=== PATIENT | female | born 1955 | race Caucasian/White ===

== ENCOUNTER 2024-06-11 23:39 | Emergency (ER) | payer OTHER ==
[~2024-06-11] VITALS: Ht 167.6 cm; Wt 89.4 kg
--- NOTE | 2024-06-12 00:14 | NUR ---
PATIENT REPORTS SHE TRIPPED WITH UNEVEN CEMENT AND FELL FORWARD. BROKE FALL WITH R ARM, VERBALIZES R HAND, SHOULDER, HEAD AND NECK PAIN. REPORTS MAY HAVE PASSED OUT FOR A FEW SECONDS
--- NOTE | 2024-06-12 00:16 | ERN ---
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 She does have pain in her right shoulder, right hand. States that she was able to walk after the event. Allergies: Coded Allergies: No Known Allergies (Unverified Allergy, Unknown, 06/11/24) Past Medical History Past Medical History: Other Additional Past Medical Hx: BREAST CA, BONE CA Surgical History: Hysterectomy Review of System Dictation NEGATIVE EXCEPT PER HPI Constitutional: Negative for fever,chills, and weight loss Eyes: Negative for injury, pain,redness, and discharge ENT: Negative for injury,pain or swelling Cardiovascular: denies chest pain, palpitations, and edema Respiratory: Negative for shortness of breath, cough, and wheezing, Abdomen/GI: Negative for abdominal pain, nausea, vomiting, diarrhea, and constipation Back: Negative for injury and pain : Negative for injury, bleeding and discharge MS/Extremity: Pain to the right shoulder, right hand. Skin: Negative for rash, and discoloration Neuro: Negative for headache, weakness, numbness, tingling, and seizure Psych: Negative for suicide ideation, homicidal ideation, and hallucinations Initial Vital Sign VS Vital Signs Date Time Temp Pulse Resp B/P (MAP) Pulse Ox O2 Delivery O2 Flow Rate FiO2 06/11/24 23:45 98.2 71 20 150/95 98 Room Air 06/12/24 01:38 0 21 Physical Exam Dictation General: awake, alert, NAD Head/Face: Normocephalic, atraumatic Eyes: PERRL, EOMI, vision at baseline ENT: oral cavity clear, TMs clear, no signs of infection Neck: Trachea midline, supple, no nuchal rigidity Cardiovascular: RRR, normal S1/S2, No MRGs, no JVD Respiratory: CTAB, no respiratory distress, No rales or wheezes Abdomen: Soft , no tender Skin: Warm, dry, normal turgor MS/Extremity: Pulses equal, no cyanosis, neurovascular intact, FROM Neuro: COAx4, GCS 15, strength 5/5, CN 2-12 intact, normal cerebellar exam, normal gait, Psych: Normal behavior, mood, and affect normal ED Course ED Course Orders Procedure Category Date Status Time Ct Head/Brain W/O CT 06/12/24 Resulted Contrast 00:05 Shoulder Comp 2+Vws Rt RAD 06/12/24 Resulted 00:05 Hand 3+Vws Rt RAD 06/12/24 Resulted 00:05 Pelvis 1-2vws RAD 06/12/24 Resulted 00:05 Vital Signs Date Time Temp Pulse Resp B/P (MAP) Pulse Ox O2 Delivery O2 Flow Rate FiO2 06/12/24 01:38 98.4 72 17 121/68 96 Room Air* 0 21 06/11/24 23:45 98.2 71 20 150/95 98 Room Air Medical Decision Making MDM 68-year-old female status post fall from ground level. Patient tripped and fell hitting her head in the cement, positive loss of consciousness. Reports right shoulder and right arm pain Fall + loss of consciousness CT of the head ordered X-ray of right shoulder, right hand Pelvis x-ray Patient will be re-evaluate of imagings done. All the images was negative for acute fractures. Patient he will be discharged to home with the recommended to follow up with the primary care physician. DX & DISP Disposition: Discharge Departure Impression: Primary Impression: Fall (on) (from) other stairs and steps, initial encounter Additional Impressions: LOC (loss of consciousness), Shoulder pain, right, Hand pain, right Condition: Stable Referrals: SELF,REFERRAL (PCP) Time of Disposition: 01:40 FAMILIA PASTRANA MD Jun 12, 2024 00:16
--- NOTE | 2024-06-12 01:18 | HMCIMG ---
CT HEAD/BRAIN W/O CONTRAST HISTORY: Status post fall COMPARISON: None TECHNIQUE: Multiple sequential axial images of the head were obtained from the base of the skull through vertex. Patient was not given contrast through intravenous route. FINDINGS: The ventricles and extraventricular CSF spaces are dilated consistent with cerebral atrophy. Nonspecific white matter changes seen. There is no midline shift, mass effect or herniation. No acute intracranial bleed is seen. Visualized portion of the paranasal sinuses are grossly within normal limits. IMPRESSION: 1. No acute intracranial bleed is seen. 2. Atrophy with white matter changes. CT was performed with one or more following dose reduction techniques: automated exposure control, adjustment of the mA and kv according to patient's size, or use of a iterative reconstruction technique.
--- NOTE | 2024-06-12 01:26 | HMCIMG ---
HAND 3+VWS RT HISTORY: Status post fall COMPARISON: None TECHNIQUE: 3 images of right hand were obtained. FINDINGS: There is no acute displaced fracture or dislocation. Degenerative changes are seen. IMPRESSION: 1. Findings as described above.
--- NOTE | 2024-06-12 01:26 | HMCIMG ---
PELVIS 1-2VWS HISTORY: Status post fall COMPARISON: None TECHNIQUE: A frontal projection of the pelvis was obtained. FINDINGS: Bilateral hip joint space narrowing is seen. There is no acute displaced fracture or dislocation. Degenerative changes are seen. IMPRESSION: 1. Findings as described above.
--- NOTE | 2024-06-12 01:26 | HMCIMG ---
SHOULDER COMP 2+VWS RT HISTORY: Status post fall COMPARISON: None TECHNIQUE: 2 images of right shoulder were obtained. FINDINGS: There is no acute displaced fracture or dislocation. Degenerative changes are seen. IMPRESSION: 1. Findings as described above.
[2024-06-12 01:38] VITALS: BP 121/68; PULSE 72; RESP 17; TEMP 98.4; O2SAT 96
== END 2024-06-12 01:45 | disposition home or self-care (01) ==
LOC: EDH 23:39
DX: M79.641 Pain in right hand (principal); M25.511 Pain in right shoulder; Z85.3 Personal history of malignant neoplasm of breast; Z90.710 Acquired absence of both cervix and uterus; W01.0XXA Fall on same level from slipping, tripping and stumbling without subsequent striking against object, initial encounter; Y93.89 Activity, other specified; Y92.89 Other specified places as the place of occurrence of the external cause; Y99.8 Other external cause status
CPT/HCPCS: 70450; 72170; 73030; 73130; 99284